=== PATIENT | female | born 1965 | race Caucasian/White ===

== ENCOUNTER → 2017-09-25 | Outpatient (REF) | payer OTHER ==
[2017-09-25 12:05] LABS: MEAN CORPUSCULAR HEMOGLOBIN 27.6 pg (27.0-33.0); MEAN CORPUSCULAR HGB CONC 32.1 g/dl (32.0-36.5); MEAN CORPUSCULAR VOLUME 85.9 fl (80.0-96.0); PLATELET COUNT, AUTOMATED 395 10^3/uL (150-450); RED CELL DISTRIBUTION WIDTH 13.4 % (11.5-14.5); WHITE BLOOD COUNT 5.9 10^3/uL (4.0-10.0)
[2017-09-25 12:16] LABS: ALBUMIN 3.3 GM/DL (3.2-5.2); ALBUMIN/GLOBULIN RATIO 0.92 (1.00-1.93); ALKALINE PHOSPHATASE 69 U/L (45-117); ALT/SGPT 21 U/L (12-78); ANION GAP 4 MEQ/L (8-16); AST/SGOT 18 U/L (7-37); BILIRUBIN,TOTAL 0.4 MG/DL (0.2-1.0); BLOOD UREA NITROGEN 17 MG/DL (7-18); CALCIUM LEVEL 9.1 MG/DL (8.5-10.1); CARBON DIOXIDE LEVEL 31 MEQ/L (21-32); CHLORIDE LEVEL 105 MEQ/L (98-107); CREATININE FOR GFR 0.59 MG/DL (0.55-1.02); GLOMERULAR FILTRATION RATE > 60.0 (>51); GLUCOSE, FASTING 80 MG/DL (70-105); POTASSIUM SERUM 4.2 MEQ/L (3.5-5.1); SODIUM LEVEL 140 MEQ/L (136-145); TOTAL PROTEIN 6.9 GM/DL (6.4-8.2)
== END ==
LOC: M SFHCPLAZ 09:57
PROVIDERS: ATTEND Nurse Practitioner Family
DX: K51.90 Ulcerative colitis, unspecified, without complications (principal); E55.9 Vitamin D deficiency, unspecified

== ENCOUNTER → 2018-09-22 | Outpatient (REF) | payer OTHER ==
[2018-09-22 13:19] LABS: HEMATOCRIT 38.9 % (36.0-47.0); HEMOGLOBIN 12.3 g/dl (12.0-15.5); MEAN CORPUSCULAR HEMOGLOBIN 28.5 pg (27.0-33.0); MEAN CORPUSCULAR HGB CONC 31.6 g/dl (32.0-36.5); MEAN CORPUSCULAR VOLUME 90.3 fl (80.0-96.0); PLATELET COUNT, AUTOMATED 395 10^3/uL (150-450); RED BLOOD COUNT 4.31 10^6/uL (4.00-5.40); RED CELL DISTRIBUTION WIDTH 13.7 % (11.5-14.5); WHITE BLOOD COUNT 5.2 10^3/uL (4.0-10.0)
[2018-09-22 13:32] LABS: ALBUMIN/GLOBULIN RATIO 1.14 (1.00-1.93); ALKALINE PHOSPHATASE 82 U/L (45-117); ALT/SGPT 22 U/L (12-78); ANION GAP 6 MEQ/L (8-16); AST/SGOT 23 U/L (7-37); BILIRUBIN,TOTAL 0.4 MG/DL (0.2-1.0); BLOOD UREA NITROGEN 13 MG/DL (7-18); CALCIUM LEVEL 9.8 MG/DL (8.5-10.1); CARBON DIOXIDE LEVEL 31 MEQ/L (21-32); CHLORIDE LEVEL 102 MEQ/L (98-107); CREATININE FOR GFR 0.78 MG/DL (0.55-1.30); GLOMERULAR FILTRATION RATE > 60.0 (>51); GLUCOSE, FASTING 84 MG/DL (70-100); SODIUM LEVEL 139 MEQ/L (136-145); TOTAL PROTEIN 7.5 GM/DL (6.4-8.2)
[2018-09-22 13:41] LABS: TOTAL 25(OH) VITAMIN D 29.8 NG/ML (30.0-100.0)
== END ==
LOC: M SFHCPLAZ 10:55
DX: K51.90 Ulcerative colitis, unspecified, without complications (principal); N95.1 Menopausal and female climacteric states; E55.9 Vitamin D deficiency, unspecified

== ENCOUNTER → 2018-10-27 | Outpatient (REF) | payer OTHER ==
[2018-11-02 08:06] LABS: HPV HYBRID CAPTURE II Negative (Negative)
== END ==
LOC: M SFHCWAGY 13:40
DX: Z12.4 Encounter for screening for malignant neoplasm of cervix (principal)

== ENCOUNTER → 2018-10-27 | Outpatient (CLI) | payer OTHER | LOC: M WHC 13:06 | DX: Z12.31 Encounter for screening mammogram for malignant neoplasm of breast (principal); Z78.0 Asymptomatic menopausal state | CPT/HCPCS: 77067 ==

== ENCOUNTER 2019-03-11 15:12 | Outpatient (RCR) | payer OTHER | END 2019-03-16 | LOC: M PT 15:12 | PROVIDERS: ATTEND Nurse Practitioner Family | DX: M65.232 Calcific tendinitis, left forearm (principal) ==

== ENCOUNTER 2019-04-15 11:45 | Outpatient (RCR) | payer OTHER | END 2019-04-16 | LOC: M PT 11:45 | PROVIDERS: ATTEND Nurse Practitioner Family | DX: M77.8 Other enthesopathies, not elsewhere classified (principal) ==

== ENCOUNTER → 2019-09-17 | Outpatient (REF) | payer OTHER ==
[2019-09-17 12:05] LABS: ALBUMIN 3.5 GM/DL (3.2-5.2); ALT/SGPT 19 U/L (12-78); BILIRUBIN,TOTAL 0.5 MG/DL (0.2-1.0); BLOOD UREA NITROGEN 16 MG/DL (7-18); CALCIUM LEVEL 9.2 MG/DL (8.5-10.1); CARBON DIOXIDE LEVEL 32 MEQ/L (21-32); CHLORIDE LEVEL 103 MEQ/L (98-107); CHOLESTEROL LEVEL 200 MG/DL (<200); CHOLESTEROL RISK RATIO 3.174 (<5); GLOMERULAR FILTRATION RATE > 60.0 (>51); GLUCOSE, FASTING 88 MG/DL (70-100); HDL CHOLESTEROL 63 MG/DL (>40); LDL CHOLESTEROL 124 MG/DL (<100); NON-HDL-C 137 MG/DL; POTASSIUM SERUM 4.3 MEQ/L (3.5-5.1); SODIUM LEVEL 139 MEQ/L (136-145); TOTAL PROTEIN 6.9 GM/DL (6.4-8.2); TRIGLYCERIDES LEVEL 67 MG/DL (<150)
[2019-09-17 12:10] LABS: TOTAL 25(OH) VITAMIN D 28.2 NG/ML (30.0-100.0)
== END ==
LOC: M SFHCPLAZ 10:00
PROVIDERS: ATTEND Nurse Practitioner Family
DX: Z13.220 Encounter for screening for lipoid disorders (principal); N95.1 Menopausal and female climacteric states; E55.9 Vitamin D deficiency, unspecified

== ENCOUNTER → 2020-10-18 | Outpatient (REF) | payer OTHER ==
[2020-10-18 17:21] LABS: HEMOGLOBIN 11.4 g/dl (12.0-15.5); MEAN CORPUSCULAR HEMOGLOBIN 27.5 pg (27.0-33.0); MEAN CORPUSCULAR HGB CONC 30.8 g/dl (32.0-36.5); MEAN CORPUSCULAR VOLUME 89.2 fl (80.0-96.0); PLATELET COUNT, AUTOMATED 409 10^3/uL (150-450); RED BLOOD COUNT 4.15 10^6/uL (4.00-5.40); WHITE BLOOD COUNT 6.1 10^3/uL (4.0-10.0)
[2020-10-18 17:58] LABS: ALBUMIN 3.7 GM/DL (3.2-5.2); ALT/SGPT 17 U/L (12-78); BILIRUBIN,TOTAL 0.2 MG/DL (0.2-1.0); BLOOD UREA NITROGEN 17 MG/DL (7-18); CALCIUM LEVEL 9.8 MG/DL (8.5-10.1); CARBON DIOXIDE LEVEL 31 MEQ/L (21-32); CHLORIDE LEVEL 104 MEQ/L (98-107); CREATININE FOR GFR 0.74 MG/DL (0.55-1.30); GLOMERULAR FILTRATION RATE > 60.0 (>51); GLUCOSE, FASTING 88 MG/DL (70-100); POTASSIUM SERUM 5.8 MEQ/L (3.5-5.1); SODIUM LEVEL 136 MEQ/L (136-145); TOTAL PROTEIN 7.4 GM/DL (6.4-8.2)
[2020-10-18 18:00] LABS: FOLATE 20.9 NG/ML; TOTAL 25(OH) VITAMIN D 30.8 NG/ML (30.0-100.0); VITAMIN B12 LEVEL 1358 PG/ML
== END ==
LOC: M SFHCPLAZ 14:27
PROVIDERS: ATTEND Nurse Practitioner Family
DX: K51.90 Ulcerative colitis, unspecified, without complications (principal); E55.9 Vitamin D deficiency, unspecified

== ENCOUNTER → 2020-10-19 | Outpatient (REF) | payer OTHER ==
[2020-10-19 11:45] LABS: BLOOD UREA NITROGEN 13 MG/DL (7-18); CALCIUM LEVEL 9.4 MG/DL (8.5-10.1); CARBON DIOXIDE LEVEL 31 MEQ/L (21-32); CHLORIDE LEVEL 105 MEQ/L (98-107); CREATININE FOR GFR 0.78 MG/DL (0.55-1.30); GLOMERULAR FILTRATION RATE > 60.0 (>51); GLUCOSE, FASTING 84 MG/DL (70-100); POTASSIUM SERUM 4.7 MEQ/L (3.5-5.1); SODIUM LEVEL 140 MEQ/L (136-145)
== END ==
LOC: M SFHCPLAZ 09:37
PROVIDERS: ATTEND Nurse Practitioner Family
DX: E87.5 Hyperkalemia (principal)

== ENCOUNTER → 2021-12-27 | Outpatient (CLI) | payer OTHER ==
[2021-12-27 13:30] LABS: BASO # 0.1 10^3/uL (0.0-0.2); BASO % 1.5 % (0.0-1.0); EOS # 0.1 10^3/uL (0.0-0.5); EOS % 2.6 % (0.0-3.0); HEMATOCRIT 37.7 % (36.0-47.0); HEMOGLOBIN 11.9 g/dl (12.0-15.5); LYMPH # 2.3 10^3/uL (1.5-5.0); MEAN CORPUSCULAR HEMOGLOBIN 28.3 pg (27.0-33.0); MEAN CORPUSCULAR HGB CONC 31.6 g/dl (32.0-36.5); MEAN CORPUSCULAR VOLUME 89.5 fl (80.0-96.0); MONO # 0.5 10^3/uL (0.0-0.8); MONO % 8.6 % (2.0-8.0); NEUTROPHILS # 2.4 10^3/uL (1.5-8.5); NEUTROPHILS % 44.3 % (36.0-66.0); PLATELET COUNT, AUTOMATED 403 10^3/uL (150-450); RED BLOOD COUNT 4.21 10^6/uL (4.00-5.40); WHITE BLOOD COUNT 5.4 10^3/uL (4.0-10.0)
[2021-12-27 14:04] LABS: ALBUMIN 3.5 GM/DL (3.2-5.2); ALT/SGPT 24 U/L (12-78); BILIRUBIN,TOTAL 0.2 MG/DL (0.2-1.0); BLOOD UREA NITROGEN 14 MG/DL (7-18); CALCIUM LEVEL 9.4 MG/DL (8.5-10.1); CARBON DIOXIDE LEVEL 29 MEQ/L (21-32); CHLORIDE LEVEL 108 MEQ/L (98-107); CHOLESTEROL LEVEL 190 MG/DL (<200); CHOLESTEROL RISK RATIO 2.968 (<5); CREATININE FOR GFR 0.72 MG/DL (0.55-1.30); FREE T4 0.93 NG/DL (0.76-1.46); GLOMERULAR FILTRATION RATE > 60.0 (>51); GLUCOSE, FASTING 87 MG/DL (70-100); HDL CHOLESTEROL 64 MG/DL (>40); LDL CHOLESTEROL 118 MG/DL (<100); NON-HDL-C 126 MG/DL; POTASSIUM SERUM 4.8 MEQ/L (3.5-5.1); SODIUM LEVEL 142 MEQ/L (136-145); TOTAL 25(OH) VITAMIN D 63.2 NG/ML (30.0-100.0); TOTAL PROTEIN 7.3 GM/DL (6.4-8.2); TRIGLYCERIDES LEVEL 42 MG/DL (<150); VITAMIN B12 LEVEL 1587 PG/ML (247-911)
== END ==
LOC: M PLAIMG 11:00
PROVIDERS: ATTEND Physician Assistant
DX: Z13.220 Encounter for screening for lipoid disorders (principal); K51.90 Ulcerative colitis, unspecified, without complications; R41.3 Other amnesia; R22.31 Localized swelling, mass and lump, right upper limb

== ENCOUNTER → 2022-01-03 | Outpatient (CLI) | payer OTHER | LOC: M WHC 12:58 | PROVIDERS: ATTEND Physician Assistant | DX: Z13.820 Encounter for screening for osteoporosis (principal); M85.88 Other specified disorders of bone density and structure, other site; M85.851 Other specified disorders of bone density and structure, right thigh; M85.852 Other specified disorders of bone density and structure, left thigh ==

== ENCOUNTER → 2022-05-29 | Outpatient (CLI) | payer OTHER | LOC: M WHC 07:43 | PROVIDERS: ATTEND Physician Assistant | DX: R10.32 Left lower quadrant pain (principal) ==

== ENCOUNTER → 2023-05-31 | Outpatient (REF) | payer OTHER ==
[~2023-05-31] MED LIST: BENZ200C70 PO; FLUO20CA22
== END ==
LOC: M LAB REF 17:42
PROVIDERS: ATTEND Physician Assistant Medical
DX: B34.9 Viral infection, unspecified (principal)

== ENCOUNTER 2023-06-02 16:34 | Emergency (ER) | payer OTHER ==
[~2023-06-02] VITALS: Ht 172.7 cm; Wt 54.8 kg
[2023-06-02] MEDS ORDERED: FLUO20CA22 (16:42)
[2023-06-02 17:40] LABS: HEMATOCRIT 37.3 % (36.0-47.0); MEAN CORPUSCULAR HGB CONC 32.2 g/dl (32.0-36.5); MEAN CORPUSCULAR VOLUME 87.1 fl (80.0-96.0); RED BLOOD COUNT 4.28 10^6/uL (4.00-5.40); WHITE BLOOD COUNT 6.6 10^3/uL (4.0-10.0)
[2023-06-02] MEDS ORDERED: ACETAMINOPHEN 1000MG 100ML IV BAG IV ONE (17:50)
[2023-06-02] MEDS ORDERED: METOCLOPRAMIDE INJ 10MG/2ML VIAL IV ONE (17:50)
[2023-06-02] MEDS ORDERED: dexAMETHasone 20MG/5ML VIAL IV ONE (17:50)
[2023-06-02 17:52] LABS: PLATELET COUNT, AUTOMATED 368 10^3/uL (150-450)
[2023-06-02 17:55] LABS: ATYPICAL LYMPH 5 % (0-5); BASOPHILS 2 % (0-1); EOSINOPHILS 3 % (0-3); LYMPHOCYTES 36 % (16-44); MONOCYTES 11 % (0-5); NEUTROPHILS 42 % (28-66)
[2023-06-02] MEDS ORDERED: NS 1,000 ML IV ONE (17:55)
[2023-06-02 17:56] LABS: PLATELET ESTIMATE NORMAL (NORMAL)
[2023-06-02 17:57] LABS: APPEARANCE, URINE HAZY (CLEAR); BACTERIA, URINE AUTO NEGATIVE (NEGATIVE); BILIRUBIN, URINE AUTO NEGATIVE (NEGATIVE); BLOOD, URINE BLOOD 2+ (NEGATIVE); COLOR, URINE YELLOW (YELLOW); GLUCOSE, URINE (UA) AUTO NEGATIVE (NEGATIVE); KETONE, URINE AUTO TRACE mg/dL (NEGATIVE); LEUKOCYTE ESTERASE, URINE AUTO NEGATIVE (NEGATIVE); MUCUS, URINE LARGE (NEGATIVE); NITRITE, URINE AUTO NEGATIVE (NEGATIVE); PROTEIN, URINE AUTO 1+ mg/dL (NEGATIVE); RBC, URINE AUTO 6 /HPF (0-3); SPECIFIC GRAVITY URINE AUTO 1.031 (1.002-1.035); SQUAMOUS EPITHELIAL CELL UR AU 0 /HPF (0-6); WBC, URINE AUTO 3 /HPF (0-3)
[2023-06-02 18:01] LABS: LIPASE 39 U/L (12-53)
[2023-06-02 18:03] LABS: BLOOD UREA NITROGEN 13 MG/DL (9-23); CALCIUM LEVEL 9.1 MG/DL (8.5-10.1); CARBON DIOXIDE LEVEL 30 MMOL/L (20-31); CHLORIDE LEVEL 100 MMOL/L (98-107); CREATININE FOR GFR 0.68 MG/DL (0.55-1.30); GLOMERULAR FILTRATION RATE > 60.0 (>51); GLUCOSE, FASTING 94 MG/DL (60-100); MAGNESIUM LEVEL 1.9 MG/DL (1.8-2.4); POTASSIUM SERUM 4.5 MMOL/L (3.5-5.1); SODIUM LEVEL 137 MMOL/L (136-145)
[2023-06-02 18:05] LABS: FREE T3 2.9 PG/ML (2.3-4.2); THYROXINE (T4) 10.6 UG/DL (4.5-10.9)
[2023-06-02 18:06] LABS: THYROID STIMULATING HORMONE 0.965 uIU/ML (0.55-4.78)
[2023-06-02 20:11] VITALS: BP 104/59; TEMP 97; O2SAT 97
[2023-06-02] MEDS ORDERED: BENZ200C70 PO (20:32)
== END 2023-06-02 20:43 | disposition home or self-care (01) ==
LOC: M ED 16:34
DX: J06.9 Acute upper respiratory infection, unspecified (principal); R00.1 Bradycardia, unspecified; Z79.899 Other long term (current) drug therapy
CPT/HCPCS: 70450; 71046; 80048; 81001; 83690; 83735; 84436; 84443; 84481; 85025; 87486; 87581; 87633; 87798; 93005; 96361; 96374; 96375; 99284; J0131; J1100; J2765

== ENCOUNTER → 2024-05-17 | Outpatient (CLI) | payer OTHER ==
[~2024-05-17] MED LIST changes: +FLUO-365; -FLUO20CA22
[2024-05-17 19:27] LABS: HEMATOCRIT 38.2 % (36.0-47.0); HEMOGLOBIN 12.2 g/dl (12.0-15.5); MEAN CORPUSCULAR HEMOGLOBIN 28.4 pg (27.0-33.0); MEAN CORPUSCULAR HGB CONC 31.9 g/dl (32.0-36.5); MEAN CORPUSCULAR VOLUME 88.8 fl (80.0-96.0); PLATELET COUNT, AUTOMATED 421 10^3/uL (150-450); WHITE BLOOD COUNT 6.1 10^3/uL (4.0-10.0)
[2024-05-17 20:04] LABS: BLOOD UREA NITROGEN 15 MG/DL (9-23); CALCIUM LEVEL 9.8 MG/DL (8.5-10.1); CARBON DIOXIDE LEVEL 30 MMOL/L (20-31); CHLORIDE LEVEL 106 MMOL/L (98-107); CHOLESTEROL LEVEL 210 MG/DL (<200); CHOLESTEROL RISK RATIO 4.01 (<5); CREATININE FOR GFR 0.72 MG/DL (0.55-1.30); GLOMERULAR FILTRATION RATE > 60.0 (>51); GLUCOSE, FASTING 92 MG/DL (60-100); HDL CHOLESTEROL 52.3 MG/DL (>40); LDL CHOLESTEROL 141.3 MG/DL (<100); NON-HDL-C 157.7 MG/DL; POTASSIUM SERUM 4.8 MMOL/L (3.5-5.1); SODIUM LEVEL 142 MMOL/L (136-145); TRIGLYCERIDES LEVEL 82 MG/DL (<150)
[2024-05-17 20:06] LABS: TOTAL 25(OH) VITAMIN D 46.6 NG/ML (20.0-100.0)
[2024-05-17 20:26] LABS: ATYPICAL LYMPH 10 % (0-5); BASOPHILS 4 % (0-1); EOSINOPHILS 2 % (0-3); LYMPHOCYTES 42 % (16-44); MONOCYTES 3 % (0-5); NEUTROPHILS 39 % (28-66)
[2024-05-17 20:27] LABS: PLATELET ESTIMATE NORMAL (NORMAL)
== END ==
LOC: M PLALAB 15:40
PROVIDERS: ATTEND Family Medicine
DX: K51.90 Ulcerative colitis, unspecified, without complications (principal); E55.9 Vitamin D deficiency, unspecified; E78.00 Pure hypercholesterolemia, unspecified

== ENCOUNTER → 2024-10-28 | Outpatient (REF) | payer OTHER | LOC: M SFHCWAGY 15:02 | PROVIDERS: ATTEND Family Medicine | DX: Z12.4 Encounter for screening for malignant neoplasm of cervix (principal); R87.615 Unsatisfactory cytologic smear of cervix ==

== ENCOUNTER → 2024-12-10 | Outpatient (CLI) | payer OTHER | LOC: M PLAIMG 15:15 → M PLALAB 15:15 | PROVIDERS: ATTEND Family Medicine | DX: M79.675 Pain in left toe(s) (principal) ==

== ENCOUNTER → 2025-04-07 | Outpatient (CLI) | payer OTHER | LOC: M SOG 06:49 | PROVIDERS: ATTEND Orthopaedic Surgery | DX: M25.562 Pain in left knee (principal); M25.561 Pain in right knee ==

== ENCOUNTER → 2025-05-12 | Outpatient (CLI) | payer OTHER ==
[~2025-05-12] MED LIST changes: +HYDR-4571 PO; +NAPR-849 PO
== END ==
LOC: M PLAIMG 15:06
PROVIDERS: ATTEND Physician Assistant Medical
DX: S52.502A Unspecified fracture of the lower end of left radius, initial encounter for closed fracture (principal); W19.XXXA Unspecified fall, initial encounter

== ENCOUNTER 2025-05-17 09:18 | Day surgery (SDC) | payer OTHER ==
[~2025-05-17] VITALS: Ht 172.7 cm; Wt 54.6 kg
[~2025-05-17 09:18] MED LIST changes: -HYDR-4571 PO; -NAPR-849 PO
[2025-05-17] MEDS ORDERED: MIDAZOLAM INJ 2 MG/2 ML VIAL As Ordered ONE (09:28)
[2025-05-17] MEDS ORDERED: ONDANSETRON 4MG 2ML VIAL As Ordered ONE (09:28)
[2025-05-17] MEDS ORDERED: LIDOCAINE 2% 100 MG/5 ML SDV (FOR ANES.) As Ordered ONE (09:29)
[2025-05-17] MEDS ORDERED: KETOROLAC 30 MG/ML 1 ML VIAL As Ordered ONE (09:29)
[2025-05-17] MEDS ORDERED: dexAMETHasone 4 MG/ML 1 ML VIAL As Ordered ONE (09:29)
[2025-05-17] MEDS ORDERED: ACETAMINOPHEN 1000MG/100ML IV BAG As Ordered ONE (09:29)
[2025-05-17] MEDS ORDERED: NAPR-849 PO (09:41)
[2025-05-17] MEDS: MIDAZOLAM INJ 2 MG/2 ML VIAL IV PRN (11:06)
[2025-05-17] MEDS: LIDOCAINE 1% SDV 5 ML VIAL PN ONE (11:10)
[2025-05-17] MEDS: dexAMETHasone 10 MG/1 ML VIAL PRES.FREE PN ONE (11:10)
[2025-05-17] MEDS: EPINEPHrine INJ 1 MG/ML 1ML AMP PN ONE (11:10)
[2025-05-17] MEDS: ROPIvacaine 0.5% 30ML VIAL PN ONE (11:10)
[2025-05-17] MEDS: ceFAZolin SODIUM 2 GM in DEXTROSE 5% (D5W) ADV/MINI-BAG 50 ML IV ONE (11:50)
[2025-05-17] MEDS ORDERED: HYDR-4571 PO (13:14)
[2025-05-17 14:51] VITALS: BP 112/58; TEMP 97; O2SAT 100
== END 2025-05-17 15:04 | disposition home or self-care (01) ==
LOC: M SDC 09:18
PROVIDERS: ATTEND Neuromusculoskeletal Medicine, Sports Medicine
DX: S52.502A Unspecified fracture of the lower end of left radius, initial encounter for closed fracture (principal); W19.XXXA Unspecified fall, initial encounter; Y93.02 Activity, running; Y92.9 Unspecified place or not applicable
CPT/HCPCS: 25607; 76000; C1713; J0131; J0166; J0690; J1100; J1885; J2250; J2405; J2795; J3010

== ENCOUNTER → 2025-06-30 | Outpatient (CLI) | payer OTHER ==
[~2025-06-30] MED LIST changes: +HYDR-4571 PO; +NAPR-849 PO
== END ==
LOC: M SOG 14:26
PROVIDERS: ATTEND Neuromusculoskeletal Medicine, Sports Medicine
DX: M25.532 Pain in left wrist (principal)

== ENCOUNTER → 2025-08-02 | Outpatient (CLI) | payer OTHER | LOC: M WHC 12:31 | PROVIDERS: ATTEND Family Medicine | DX: Z12.31 Encounter for screening mammogram for malignant neoplasm of breast (principal); Z53.9 Procedure and treatment not carried out, unspecified reason ==

== ENCOUNTER → 2025-08-03 | Outpatient (CLI) | payer OTHER | LOC: M WHC 13:56 | PROVIDERS: ATTEND Family Medicine | DX: Z12.31 Encounter for screening mammogram for malignant neoplasm of breast (principal) ==

== ENCOUNTER 2025-08-31 19:07 | Emergency (ER) | payer OTHER ==
[~2025-08-31] VITALS: Ht 172.7 cm; Wt 59.1 kg
[2025-08-31] MEDS: CEPHALEXIN 500 MG CAP PO ONE (22:47)
[2025-08-31] MEDS: IBUPROFEN 600 MG TAB PO ONE (22:48)
[2025-08-31] MEDS: TETANUS/DIPHTH/ACEL. PERTUSSIS 0.5 ML SYR IM.IMMUN ONE (22:48)
[2025-08-31] MEDS: LIDOCAINE 2% MDV 20 ML VIAL SC ONE (23:00)
[2025-09-01] MEDS ORDERED: HYDR-3713 PO (00:06)
[2025-09-01] MEDS ORDERED: CEPH500C PO (00:06)
[2025-09-01 00:17] VITALS: BP 110/58; TEMP 96.5; O2SAT 98
[2025-09-01] MEDS: NORCO 5/325MG TABLET (HOME DOSE PACK) PO ONE (00:19)
== END 2025-09-01 00:36 | disposition home or self-care (01) ==
LOC: M ED 19:07
DX: S62.630B Displaced fracture of distal phalanx of right index finger, initial encounter for open fracture (principal); S62.632B Displaced fracture of distal phalanx of right middle finger, initial encounter for open fracture; S62.650A Nondisplaced fracture of middle phalanx of right index finger, initial encounter for closed fracture; W31.2XXA Contact with powered woodworking and forming machines, initial encounter; Y92.89 Other specified places as the place of occurrence of the external cause; Y93.89 Activity, other specified; Y99.0 Civilian activity done for income or pay; Z23 Encounter for immunization; Z79.1 Long term (current) use of non-steroidal anti-inflammatories (NSAID); Z79.2 Long term (current) use of antibiotics; Z79.899 Other long term (current) drug therapy

== ENCOUNTER → 2025-09-27 | Outpatient (CLI) | payer OTHER ==
[~2025-09-27] MED LIST changes: +CEPH500C PO; +HYDR-3713 PO
== END ==
LOC: M SOG 08:21
PROVIDERS: ATTEND Physician Assistant
DX: S62.360D Nondisplaced fracture of neck of second metacarpal bone, right hand, subsequent encounter for fracture with routine healing (principal)

== ENCOUNTER → 2025-10-11 | Outpatient (CLI) | payer OTHER | LOC: M SOG 07:41 | PROVIDERS: ATTEND Physician Assistant | DX: S62.630D Displaced fracture of distal phalanx of right index finger, subsequent encounter for fracture with routine healing (principal); W18.30XD Fall on same level, unspecified, subsequent encounter ==

== ENCOUNTER → 2025-11-01 | Outpatient (CLI) | payer OTHER | LOC: M SOG 14:07 | PROVIDERS: ATTEND Physician Assistant | DX: S62.630D Displaced fracture of distal phalanx of right index finger, subsequent encounter for fracture with routine healing (principal) ==